=== PATIENT | male | born 1965 | race Caucasian/White ===

== ENCOUNTER 2016-08-22 08:46 | Day surgery (SDC) | payer MEDICARE ==
[2016-08-21 09:33] VITALS: BMI 27.5
[~2016-08-22 08:46] MED LIST: LACTATED RINGERS 1,000 ML IV SCH; LIDOCAINE 1% 20 ML VIAL (10MG/ML) FOR IV START INTRADERMA PRN
[2016-08-22 09:26] VITALS: TEMP 98.1
[2016-08-22] MEDS ORDERED: LIDOCAINE 1% INJ 10MG/ML (20 ML MDV) ONE (09:46)
[2016-08-22] MEDS ORDERED: PROPOFOL 10 MG/ML 20 ML VIAL IV ONE (09:46)
--- NOTE | 2016-08-22 10:26 | P.PCN ---
Date of Procedure: 08/22/16 Procedure(s) Performed: Procedure: 1. Esophagogastroduodenoscopy and biopsy. 2. Colonoscopy and polypectomy. Preoperative diagnosis: Rectal bleeding and epigastric pain. Postoperative diagnosis: 1. Sliding hiatal hernia with LA grade B distal esophagitis. 2. Mild antral gastritis. 3. Sigmoid polyp snared but no large polyps or cancer. 4. Sigmoid diverticulosis with no evidence of acute diverticulitis or strictures. 5. Low-grade internal hemorrhoids without bleeding at the time of this exam. Preparation: HalfLytely prep. Sedation: Was provided by anesthesia. Brief clinical history: The patient is a 51-year-old male who is referred for this evaluation for the above reasons. He has been having intermittent rectal bleeding, mostly when he has hard bowel movements which is usual for him secondary to his back pain medications. He also reported some issues with reflux and epigastric pain lately. His brother, who is 6 years older, had polyps but there is no family history of colon cancer. This would be the patient's first upper and lower endoscopy. Procedure: With the patient on his left lateral decubitus position and after informed consent and adequate sedation, I passed the Olympus-GIF 160 video upper endoscope through the cricopharyngeus down the esophagus. GE junction was around 42-43 cm from the incisors and there was a sliding hiatal hernia around 2 cm in size. The distal esophagus showed multiple linear erosions terminating at the level of the GE junction consistent with LA grade B distal esophagitis. There were no strictures or Tillman's esophagus. The endoscope was then passed into the stomach which was insufflated with air and inspected in detail including the retroflex view in the cardia. There was some mottling and erythema in the antrum consistent with mild gastritis but no ulcers or erosions. Pyloric channel, duodenal bulb, post bulbar area and descending duodenum appeared within normal limits. Because of his symptoms I obtained biopsies from the duodenum, antrum and esophagus then the endoscope was withdrawn and I proceeded with the colonoscopy. Perianal area did not show any fissures or fistulas. There were no masses felt on digital rectal examination. The Olympus CFQ 160L video colonoscope was then inserted in the rectum in the usual fashion and advanced to the cecum. There were a few diverticular orifices seen scattered in the sigmoid with no evidence of acute diverticulitis or strictures. There was a pedunculated polyp in the proximal sigmoid which was snared and retrieved by suction but there were no large polyps or cancer. I retroflexed endoscope in the rectum before the endoscope was withdrawn. Low-grade internal hemorrhoids were noted but there was no evidence of bleeding. The patient tolerated the procedure well. Plan: The patient was reassured. Discussed dietary measures and local care for hemorrhoids. Will await biopsy results. I anticipate repeating his colonoscopy in 5 years. He will follow up with you as planned.
[2016-08-22 10:46] VITALS: BP 107/77; PULSE 64; RESP 16
== END 2016-08-22 10:57 | disposition home or self-care (01) ==
LOC: ORWHC2ENDO 08:46
DX: K57.30 Diverticulosis of large intestine without perforation or abscess without bleeding (principal); K29.50 Unspecified chronic gastritis without bleeding; K64.8 Other hemorrhoids; K20.9 Esophagitis, unspecified; K44.9 Diaphragmatic hernia without obstruction or gangrene; I10 Essential (primary) hypertension; E78.5 Hyperlipidemia, unspecified; F39 Unspecified mood [affective] disorder; Z79.82 Long term (current) use of aspirin; Z79.891 Long term (current) use of opiate analgesic; Z79.899 Other long term (current) drug therapy
CPT/HCPCS: 88305; 88342; 45385; 43239; J2001; J2704

== ENCOUNTER → 2020-11-12 | Outpatient (CLI) | payer MEDICARE ==
--- NOTE | 2020-11-12 10:51 | FL ---
EXAMINATION TYPE: FL barium swallow w video DATE OF EXAM: 11/12/2020 COMPARISON: NONE HISTORY: Dysphagia, food getting stuck. TECHNIQUE: Fluoroscopy. FINDINGS: Fluoroscopic guidance was provided for the procedure performed in conjunction with the [facility] [place] pathology department. Please see complete report forthcoming from the Speech Pathology departmen t. Various consistencies from thin liquid to solids were administered. Fluoroscopy time 1 minute 52 seconds. Number of images: 0. No aspiration or penetration was evident. No significant pooling was observed in the vallecula. There was normal propulsion of the bolus. IMPRESSION: 1. Normal modified barium swallow.
--- NOTE | 2020-11-12 13:44 | CT ---
EXAMINATION TYPE: CT brain wo con DATE OF EXAM: 11/12/2020 COMPARISON: None INDICATION: Pt states he feels a lump/soft spot on top of his head DLP: 1263 mGycm, Automated exposure control for dose reduction was used. CONTRAST: None CT of the brain is performed utilizing 3 mm thick sections through the posterior fossa and 3 mm thick sections through the remaining calvarium. Study is performed within 24 hours of arrival to the hosp [facility]. No abnormal hyperdensity is present to suggest an acute intracranial hemorrhage. No mass lesion is evident. No acute infarcts are evident. Ventricles and sulci are appropriate for the patient age. Paranasal sinuses and mastoid air cells within the [id number] are clear. IMPRESSIONS: 1. No acute intracranial process. 2. No suspicious abnormalities to account for patient's reported palpable abnormality.
== END | disposition home or self-care (01) ==
LOC: RADCTMAIN 10:08
PROVIDERS: ATTEND Family Medicine
DX: R13.10 Dysphagia, unspecified (principal)
CPT/HCPCS: 70450; 74230

== ENCOUNTER → 2023-02-07 | Outpatient (CLI) | payer MEDICARE ==
--- NOTE | 2023-02-07 07:38 | US ---
EXAMINATION TYPE: US abdomen limited DATE OF EXAM: 02/07/2023 COMPARISON: NONE CLINICAL INDICATION: Male, 57 years old with history of R19.06 EPIGASTRIC SWELLING, MASS OR LUMP; Pt states palpable/swelling epigastric area x few weeks/ denies pain TECHNIQUE: Multiple sonographic images of the right upper quadrant are obtained. FINDINGS: EXAM MEASUREMENTS: Liver Length: 16.6 cm Gallbladder Wall: 0.3 cm CBD: 0.5 cm Right Kidney: 11.5 x 4.5 x 5.2 cm [employer]IOLOG[employer] EQUIPMENT SPECIALIST NOTES: Pancreas: 3mm panc duct visualized, tail obscured by overlying bowel gas Liver: Multiple cystic lesions scattered throughout liver, largest within left lobe= 3.3 x 3.2 x 3.4 cm Gallbladder: Wall thickness upper limits of normal Evidence for sonographic Laws's sign: No CBD: wnl Right Kidney: lower pole gassed out Epigastric area scanned in area of pt's palpable/swelling- no abnormality visualized at this time IMPRESSION: 1. Hepatic cysts. The largest appears to be simple and measures 3.3 cm. 2. Pancreatic duct somewhat prominent within the body measuring 0.3 cm. Normal less than 0.2 cm. Cons ider follow-up ERCP. 3. Gallbladder wall thickening 0.3 cm. Consider cholecystitis.
== END | disposition home or self-care (01) ==
LOC: RADUSWWP 06:41
PROVIDERS: ATTEND Family Medicine
DX: K76.89 Other specified diseases of liver (principal); K82.8 Other specified diseases of gallbladder; R19.06 Epigastric swelling, mass or lump
CPT/HCPCS: 76705

== ENCOUNTER → 2023-03-05 | Outpatient (CLI) | payer MEDICARE ==
--- NOTE | 2023-03-05 09:45 | XR ---
EXAMINATION TYPE: XR foot complete LT DATE OF EXAM: 03/05/2023 COMPARISON: None HISTORY: Swelling under ball of foot times one month TECHNIQUE: 3 view left foot FINDINGS: No acute fracture or dislocation is evident. Joint spaces are preserved. Soft tissues appea r normal. No obvious swelling evident. No radiopaque foreign bodies evident. Follow up exams can be performed 7-10 days from acute trauma for continued pain. IMPRESSION: 1. No acute osseous abnormality. 2. No definite abnormality to correspond to soft tissue swelling ball of foot.
== END | disposition home or self-care (01) ==
LOC: RADXRYALE 09:12
PROVIDERS: ATTEND Family Medicine
DX: M79.89 Other specified soft tissue disorders (principal); M79.672 Pain in left foot